=== PATIENT | male | born 1965 | race African-American/Black ===

== ENCOUNTER 2017-08-10 18:17 | Emergency (ER) | payer SELFPAY ==
[2017-08-10 19:10] LABS: Absolute Monocytes 0.9 K/uL (0.1-1.3); Absolute Neutrophil 2.2 K/uL (1.8-8.0); Basophils % 0.5 % (0-1.3); Eosinophils % 0.3 % (0-4.4); Hematocrit 47.2 % (39.6-49.0); Lymphocytes % 39.4 % (15.3-44.8); MCH 31.6 pg (27.0-35.0); MCV 93.7 fL (80-100); MPV 9.8 fL (7.6-11.3); Monocytes % 17.3 % (3.3-12.3); RBC Red Blood Cell Count 5.04 M/uL (4.33-5.43)
[2017-08-10 19:11] LABS: Protime INR 0.94
[2017-08-10 19:24] LABS: Glucose Level 109 mg/dL (65-120)
--- NOTE | 2017-08-10 19:28 | RAD REPORT ---
EXAM DESCRIPTION: CT - Head Brain Wo Cont - 08/10/2017 7:06 pm CLINICAL HISTORY: Alteration of consciousness/ confusion COMPARISON: July 2016 TECHNIQUE: Computed axial tomography of the head was obtained. IV contrast was not requested. All CT scans are performed using dose optimization technique as appropriate and may include automated exposure control or mA/KV adjustment according to patient size. FINDINGS: An intracranial bleed is not seen . The ventricles are normal in caliber. No extra-axial fluid collection is noted. Fluid within the sinuses/ mastoids is not seen. IMPRESSION: No acute intracranial abnormality is seen. If patient's symptoms persist MRI of the bra in would be recommended.
[2017-08-10 19:30] LABS: ALT/SGPT 67 IU/L (10-60); AST/SGOT 74 IU/L (10-42); Albumin 4.6 g/dL (3.2-5.5); Alkaline Phosphatase 63 IU/L (42-121); BUN Blood Urea Nitrogen 10 mg/dL (6-20); Bilirubin Direct 0.1 mg/dL (0-0.2); Bilirubin Total 0.8 mg/dL (0.3-1.2); Creatine Phosphokinase 259 IU/L (22-269); Magnesium 1.9 mg/dL (1.8-2.5); Protein, Total 8.3 g/dL (6.0-8.3)
--- NOTE | 2017-08-10 19:32 | RAD REPORT ---
EXAM DESCRIPTION: [place] Single View08/10/2017 7:12 pm CLINICAL HISTORY: Chest pain COMPARISON: none FINDINGS: The lungs appear clear of acute infiltrate. The heart is normal size IMPRESSION: No acute abnormalities displayed
[2017-08-10 19:33] LABS: Bicarbonate 27 mEq/L (21-31); Sodium Level 132 mEq/L (135-145)
[2017-08-10 20:02] LABS: Blood Morphology Comment NOT SEEN (NOT SEEN); Platelet Estimate ADEQ
[2017-08-10] MEDS ORDERED: POTASSIUM CL SA 10 MEQ TAB PO ONE (20:10)
[2017-08-10 20:40] LABS: Barbiturates NEGATIVE (NEGATIVE); Benzodiazepines NEGATIVE (NEGATIVE); Cocaine NEGATIVE (NEGATIVE); METHAMPHETAM NEGATIVE (NEGATIVE); Opiates NEGATIVE (NEGATIVE); Phencyclidine NEGATIVE (NEGATIVE); THC Cannibis NEGATIVE (NEGATIVE)
[2017-08-10 21:04] LABS: Urine Blood NEGATIVE (NEG); Urine Glucose NEGATIVE (NEG); Urine Protein NEGATIVE (NEG); Urine Specific Gravity <1.005 (1.005-1.030)
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
--- NOTE | 2017-08-11 07:21 | EKG ---
Test Date: 2017-08-10 Test Time: 18:51:35 Babysitter: SEBAS MEASUREMENT RESULTS: Intervals: Rate: 81 PA: 204 QRSD: 108 QT: 400 QTc: 464 Corry: P: 64 PA: 204 QRS: -10 T: 52 INTERPRETIVE STATEMENTS: Normal sinus rhythm Normal ECG No previous ECG available for comparison Electronically Signed On 08-11-17 07:19:41 CDT by Karan Soares
== END 2017-08-10 21:22 | disposition home or self-care (01) ==
LOC: ER 18:17
DX: R41.82 Altered mental status, unspecified (principal); Z72.0 Tobacco use
CPT/HCPCS: 36415; 70450; 71045; 80048; 80076; 80307; 80320; 81003; 82140; 82550; 82962; 83735; 84484; 85025; 85610; 93005; 99285

== ENCOUNTER 2017-08-11 06:32 | Emergency (ER) | payer SELFPAY ==
[2017-08-11] MEDS ORDERED: THIAMINE 200 MG/2 ML INJ ONE (07:02)
[2017-08-11] MEDS ORDERED: MULTIVITAMINS 10 ML VIAL (INJ) IV ONE (07:03)
[2017-08-11] MEDS ORDERED: FOLIC ACID 5 MG/ML VIAL ONE (07:04)
[2017-08-11] MEDS ORDERED: NA CHLORIDE 0.9% 1,000 ML ONE (07:04)
[2017-08-11 07:06] LABS: Absolute Lymphocytes (CBC) 1.4 K/uL (0.7-4.9); Absolute Monocytes 0.5 K/uL (0.1-1.3); Absolute Neutrophil 1.6 K/uL (1.8-8.0); Eosinophils % 0.6 % (0-4.4); Hematocrit 48.4 % (39.6-49.0); MCH 32.1 pg (27.0-35.0); MCV 94.1 fL (80-100); MPV 9.9 fL (7.6-11.3); Monocytes % 13.6 % (3.3-12.3); RBC Red Blood Cell Count 5.14 M/uL (4.33-5.43)
[2017-08-11 07:15] LABS: Protime INR 0.99
[2017-08-11 07:22] LABS: Bicarbonate 29 mEq/L (21-31); Glucose Level 98 mg/dL (65-120); Sodium Level 134 mEq/L (135-145)
[2017-08-11 07:26] LABS: BUN Blood Urea Nitrogen 10 mg/dL (6-20); Creatine Phosphokinase 259 IU/L (22-269)
[2017-08-11 07:39] LABS: Blood Morphology Comment NOT SEEN (NOT SEEN); Platelet Estimate ADEQ; Urine White Blood Cell Casts OK
--- NOTE | 2017-08-11 08:25 | RAD REPORT ---
EXAM DESCRIPTION: MRI - Brain Wo Cont - 08/11/2017 7:46 am CLINICAL HISTORY: Altered consciousness. COMPARISON: 08/10/2017 TECHNIQUE: Multi-sequence, multiplanar MR imaging of the brain was performed without contrast. FINDINGS: No intracranial hemorrhage, hydrocephalus or extra-axial fluid collections.Scattered T2/FL AIR hyperintensities are seen in the periventricular and deep white matter which may represent chroni c microvascular ischemia. No edema or shift of midline structures. No findings to suspect brain mass. DWI is negative for acute CVA. Midline structures are normally formed. Mild mucosal thickening of both maxillary antra. IMPRESSION: Negative for acute CVA or other acute intracranial abnormality.
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
== END 2017-08-11 09:44 | disposition home or self-care (01) ==
LOC: ER 06:32
DX: R41.89 Other symptoms and signs involving cognitive functions and awareness (principal); Z72.0 Tobacco use
CPT/HCPCS: 36415; 70551; 80048; 82550; 85025; 85610; 85730; 87040; 96365; 96366; 99285; J3411; J7030